=== PATIENT | female | born 1990 | race Caucasian/White ===

== ENCOUNTER 2021-03-15 20:50 | Emergency (ER) | payer OTHER ==
[2021-03-15] MEDS ORDERED: TESSALON PERLE100 MG PO (23:10)
== END 2021-03-15 23:23 | disposition home or self-care (01) ==
LOC: FER 20:50
DX: B34.9 Viral infection, unspecified (principal); Z20.822 Contact with and (suspected) exposure to COVID-19
CPT/HCPCS: 99283; U0002